=== PATIENT | female | born 1975 | race Caucasian/White ===

== ENCOUNTER 2017-03-28 09:17 | Outpatient (CLI) | payer OTHER | END 2017-03-28 09:25 | disposition home or self-care (01) | LOC: LAB 09:17 | DX: R59.0 Localized enlarged lymph nodes (principal) ==

== ENCOUNTER 2017-04-17 16:48 | Emergency (ER) | payer OTHER ==
[~2017-04-17] VITALS: Ht 162.6 cm; Wt 70.3 kg
[2017-04-17] MEDS ORDERED: SYNTHROID50 MCG (17:56)
[2017-04-17] MEDS ORDERED: PAROXETINE CR25 MG (17:57)
== END 2017-04-17 21:05 | disposition home or self-care (01) ==
LOC: ER 16:48
DX: R21 Rash and other nonspecific skin eruption (principal)

== ENCOUNTER 2017-04-19 08:15 | Outpatient (CLI) | payer OTHER ==
[~2017-04-19 08:15] MED LIST: PAROXETINE CR25 MG; SYNTHROID50 MCG
== END 2017-04-19 08:21 | disposition home or self-care (01) ==
LOC: RAD 08:15
DX: J11.1 Influenza due to unidentified influenza virus with other respiratory manifestations (principal)

== ENCOUNTER 2017-04-19 12:53 | Outpatient (CLI) | payer OTHER | END 2017-04-19 17:00 | disposition home or self-care (01) | LOC: MAMO-SONO 12:53 | DX: Z12.31 Encounter for screening mammogram for malignant neoplasm of breast (principal); N60.11 Diffuse cystic mastopathy of right breast; N60.12 Diffuse cystic mastopathy of left breast; R10.84 Generalized abdominal pain ==

== ENCOUNTER 2017-04-19 13:01 | Outpatient (CLI) | payer OTHER | END 2017-04-19 17:00 | disposition home or self-care (01) | LOC: RAD 13:01 | DX: M54.2 Cervicalgia (principal) ==

== ENCOUNTER 2018-05-23 16:36 | Emergency (ER) | payer OTHER ==
[~2018-05-23] VITALS: Ht 165.1 cm; Wt 69.9 kg
[2018-05-23] MEDS ORDERED: TOPAMAX25 MG (16:46)
[2018-05-23] MEDS ORDERED: LIPITOR20 MG (16:46)
[2018-05-23] MEDS ORDERED: NALTREXONE HCL50 MG (16:46)
[2018-05-23] MEDS ORDERED: PAROXETINE CR25 MG (16:47)
[2018-05-23] MEDS ORDERED: PAROXETINE7.5 MG (16:47)
[2018-05-23] MEDS ORDERED: DISULFIRAM250 MG (16:47)
[2018-05-23] MEDS ORDERED: ROZEREM8 MG (16:48)
== END 2018-05-23 20:58 | disposition home or self-care (01) ==
LOC: ER 16:36
DX: R53.81 Other malaise (principal); T43.225A Adverse effect of selective serotonin reuptake inhibitors, initial encounter

== ENCOUNTER 2018-12-17 08:56 | Outpatient (CLI) | payer OTHER ==
[~2018-12-17 08:56] MED LIST changes: +DISULFIRAM250 MG; +LIPITOR20 MG; +NALTREXONE HCL50 MG; +PAROXETINE7.5 MG; +ROZEREM8 MG; +TOPAMAX25 MG
== END 2018-12-17 08:58 | disposition home or self-care (01) ==
LOC: RAD 08:56
DX: M25.561 Pain in right knee (principal); M25.562 Pain in left knee

== ENCOUNTER 2020-12-31 08:00 | Outpatient (CLI) | payer OTHER | END 2020-12-31 08:30 | disposition home or self-care (01) | LOC: PPH VACUNA 08:00 | PROVIDERS: ATTEND Emergency Medicine Pediatric Emergency Medicine | DX: Z23 Encounter for immunization (principal) ==

== ENCOUNTER → 2024-06-03 | Emergency (ER) | payer OTHER ==
[~2024-06-03] VITALS: Ht 162.6 cm; Wt 59.0 kg
[~2024-06-03] MED LIST changes: +CEFUROXIME500 MG PO; +NORFLEX100MG PO; +PEPCID AC20 MG PO; +TRAMADOL HCL 50 MG TABLET PO ONE
== END | disposition home or self-care (01) ==
LOC: ER 08:24
DX: G89.11 Acute pain due to trauma (principal); Z88.6 Allergy status to analgesic agent; M25.522 Pain in left elbow; W19.XXXA Unspecified fall, initial encounter; Y93.89 Activity, other specified; Y92.89 Other specified places as the place of occurrence of the external cause